=== PATIENT | female | born 1995 | race Caucasian/White ===

== ENCOUNTER 2017-11-29 10:05 | Emergency (ER) | payer OTHER ==
[~2017-11-29] VITALS: Ht 160 cm; Wt 50.8 kg
[~2017-11-29 10:05] MED LIST: CEPH500 PO; PROM25 PO; Verotin-Gr Cap1 EACH
[2017-11-29] MEDS ORDERED: BIRTH CONTROL (10:10)
[2017-11-29] MEDS ORDERED: IBUP600 PO (10:23)
== END 2017-11-29 10:35 | disposition home or self-care (01) ==
LOC: ER 10:05
DX: M25.512 Pain in left shoulder (principal)
CPT/HCPCS: 96372; 99283; J1885

== ENCOUNTER 2017-12-14 11:24 | Emergency (ER) | payer OTHER ==
[~2017-12-14] VITALS: Ht 160 cm; Wt 52.2 kg
[~2017-12-14 11:24] MED LIST changes: +BIRTH CONTROL; +IBUP600 PO
[2017-12-14] MEDS ORDERED: Norethindrone0.35 MG PO (12:47)
[2017-12-14 13:51] LABS: BASOPHILS ABSOLUTE AUTO 0.04 K/mm3 (0.00-0.23); BASOPHILS PERCENT AUTO 1 % (0-2); EOSINOPHILS ABSOLUTE AUTO 0.09 K/mm3 (0.00-0.68); EOSINOPHILS PERCENT AUTO 1 % (0-6); Hematocrit 41.2 % (33.0-51.0); Hemoglobin 14.1 g/dL (11.5-16.0); IMMATURE GRAN ABSOLUTE AUTO 0.01 K/mm3 (0.00-0.10); IMMATURE GRAN PERCENT AUTO 0 % (0-1); LYMPHOCYTES ABSOLUTE AUTO 2.13 K/mm3 (0.84-5.20); LYMPHOCYTES PERCENT AUTO 34 % (21-46); MONOCYTES ABSOLUTE AUTO 0.36 K/mm3 (0.16-1.47); MONOCYTES PERCENT AUTO 6 % (4-13); Mean Corpuscular HGB 32.1 pg (26.0-34.0); Mean Corpuscular HGB Conc 34.2 g/dL (31.5-36.5); Mean Corpuscular Volume 94 fL (80-100); Mean Platelet Volume 10.7 fL (9.1-12.4); NEUTROPHILS PERCENT AUTO 58 % (41-73); Platelet Count 239 K/mm3 (150-400); RDW Coefficient Variation 11.9 % (11.7-14.2); RDW Standard Deviation 41.2 fL (35.1-46.3); Red Blood Cell Count 4.39 M/mm3 (3.80-5.20); White Blood Cell Count 6.23 K/mm3 (4.00-11.30)
[2017-12-14] MEDS ORDERED: MEDR10 PO (16:36)
== END 2017-12-14 17:01 | disposition home or self-care (01) ==
LOC: ER 11:24
PROVIDERS: Physician Assistant
DX: N93.9 Abnormal uterine and vaginal bleeding, unspecified (principal); Z79.899 Other long term (current) drug therapy
CPT/HCPCS: 36415; 84702; 85025; 96374; 99283; J1885

== ENCOUNTER → 2018-09-27 | Outpatient (CLI) | payer OTHER ==
[~2018-09-27] MED LIST changes: +MEDR10 PO; +Norethindrone0.35 MG PO
== END ==
LOC: LAB SHORT 13:09 → LAB 13:09
PROVIDERS: Registered Nurse Community Health
DX: Z12.4 Encounter for screening for malignant neoplasm of cervix (principal)
CPT/HCPCS: G0123

== ENCOUNTER 2019-03-14 07:28 | Emergency (ER) | payer OTHER ==
[~2019-03-14] VITALS: Ht 175.3 cm; Wt 43.5 kg
== END 2019-03-14 09:00 | disposition home or self-care (01) ==
LOC: ER 07:28
DX: L23.7 Allergic contact dermatitis due to plants, except food (principal)
CPT/HCPCS: 96372; 99283-25; J3301

== ENCOUNTER 2020-06-29 07:42 | Emergency (ER) | payer OTHER ==
[~2020-06-29] VITALS: Ht 157.5 cm; Wt 49.9 kg
[2020-06-29 08:40] LABS: BASOPHILS ABSOLUTE AUTO 0.04 K/mm3 (0.00-0.23); BASOPHILS PERCENT AUTO 0 % (0-2); EOSINOPHILS ABSOLUTE AUTO 0.02 K/mm3 (0.00-0.68); EOSINOPHILS PERCENT AUTO 0 % (0-6); Hematocrit 43.8 % (33.0-51.0); IMMATURE GRAN ABSOLUTE AUTO 0.04 K/mm3 (0.00-0.10); IMMATURE GRAN PERCENT AUTO 0 % (0-1); LYMPHOCYTES PERCENT AUTO 9 % (21-46); MONOCYTES ABSOLUTE AUTO 0.35 K/mm3 (0.16-1.47); MONOCYTES PERCENT AUTO 3 % (4-13); Mean Corpuscular HGB Conc 34.2 g/dL (31.5-36.5); Mean Corpuscular Volume 91 fL (80-100); Mean Platelet Volume 10.5 fL (9.1-12.4); NEUTROPHILS ABSOLUTE AUTO 10.82 K/mm3 (1.96-9.15); NEUTROPHILS PERCENT AUTO 88 % (41-73); Platelet Count 223 K/mm3 (150-400); RDW Coefficient Variation 12.2 % (11.7-14.2); RDW Standard Deviation 40.4 fL (35.1-46.3); Red Blood Cell Count 4.84 M/mm3 (3.80-5.20); White Blood Cell Count 12.37 K/mm3 (4.00-11.30)
[2020-06-29 08:57] LABS: Alanine Aminotransfer (ALT/SGP 20 U/L (12-78); Albumin, Blood 4.4 g/dL (3.4-5.0); Alk Phos 59 U/L (50-136); Anion Gap 11 mmol/L (6-16); Aspartate Aminotrans (AST/SGOT 18 U/L (12-37); Bilirubin, Total 1.7 mg/dL (0.1-1.0); Blood Urea Nitrogen 6 mg/dL (8-24); Bun/Creatinine Ratio 12.6 (12.0-20.0); CO2, Blood 21 mmol/L (21-32); Calcium, Blood 9.9 mg/dL (8.5-10.1); Chloride, Blood 107 mmol/L (98-108); Creatinine, Blood 0.48 mg/dL (0.40-1.00); Globulin, Blood 4.3 g/dL (2.2-4.0); Glomerular Filtration Rate >60 (60-); Glucose, Blood 100 mg/dL (70-99); Potassium, Blood 3.4 mmol/L (3.5-5.5); Sodium, Blood 139 mmol/L (136-145); Total Protein, Blood 8.7 g/dL (6.4-8.2)
[2020-06-29] MEDS ORDERED: PHENERGAN25 MG PR (09:31)
[2020-06-29] MEDS ORDERED: Zofran4 MG PO (09:31)
[2020-06-29] MEDS ORDERED: PRENATAL TABLE1 EAC2 PO (09:50)
== END 2020-06-29 10:25 | disposition home or self-care (01) ==
LOC: ER 07:42
PROVIDERS: Emergency Medicine
DX: O21.0 Mild hyperemesis gravidarum (principal); Z3A.10 10 weeks gestation of pregnancy
CPT/HCPCS: 80053; 85025; 96361; 96374; 96375; 99283-25; J2405; J2550; J7030

== ENCOUNTER → 2020-07-22 | Outpatient (CLI) | payer OTHER ==
[~2020-07-22] MED LIST changes: +PHENERGAN25 MG PR; +PRENATAL TABLE1 EAC2 PO; +Zofran4 MG PO
[2020-07-22 15:42] LABS: Bilirubin, Urine Neg (Neg); Blood, Urine Neg (Neg); Glucose Qualitative, Urine Neg (Neg); Ketones, Urine Neg (Neg); Leukocyte Esterase, Urine Neg (Neg); Nitrite, Urine Neg (Neg); Protein, Urine Neg (Neg); Urobilinogen, Urine NORM (Normal)
[2020-07-22 15:55] LABS: Appearance, Urine Clear (Clear); Color, Urine Yellow (P-Yellow)
[2020-07-23 06:23] LABS: Candida species (DNA Probe) Negative (NEGATIVE); G. vaginalis (DNA Probe) Positive (NEGATIVE); T. vaginalis (DNA Probe) Negative (NEGATIVE)
[2020-08-02 13:11] LABS: CHLAMYDIA TRACHOMATIS, NAA Negative (Negative); NEISSERIA GONORRHOEAE, NAA Negative (Negative)
== END | disposition home or self-care (01) ==
LOC: LAB SHORT 14:48 → LAB 14:48
PROVIDERS: Advanced Practice Midwife
DX: O23.591 Infection of other part of genital tract in pregnancy, first trimester (principal); Z11.3 Encounter for screening for infections with a predominantly sexual mode of transmission
CPT/HCPCS: 81003; 87480; 87491; 87510; 87591; 87625; 87660; G0123

== ENCOUNTER → 2021-01-02 | Outpatient (CLI) | payer OTHER | END | disposition home or self-care (01) | LOC: LAB SHORT 14:02 | DX: O09.92 Supervision of high risk pregnancy, unspecified, second trimester (principal) | CPT/HCPCS: 87081; 87150 ==

== ENCOUNTER 2021-01-21 02:04 | Inpatient (IN) | payer OTHER ==
[~2021-01-21] VITALS: Ht 157.5 cm; Wt 60.0 kg
[2021-01-21 02:58] LABS: BASOPHILS ABSOLUTE AUTO 0.03 K/mm3 (0.00-0.23); BASOPHILS PERCENT AUTO 0 % (0-2); EOSINOPHILS ABSOLUTE AUTO 0.03 K/mm3 (0.00-0.68); EOSINOPHILS PERCENT AUTO 0 % (0-6); Hematocrit 36.2 % (33.0-51.0); Hemoglobin 12.2 g/dL (11.5-16.0); IMMATURE GRAN PERCENT AUTO 1 % (0-1); LYMPHOCYTES ABSOLUTE AUTO 1.56 K/mm3 (0.84-5.20); LYMPHOCYTES PERCENT AUTO 13 % (21-46); MONOCYTES ABSOLUTE AUTO 0.71 K/mm3 (0.16-1.47); MONOCYTES PERCENT AUTO 6 % (4-13); Mean Corpuscular HGB 30.1 pg (26.0-34.0); Mean Corpuscular HGB Conc 33.7 g/dL (31.5-36.5); Mean Corpuscular Volume 89 fL (80-100); Mean Platelet Volume 10.8 fL (9.1-12.4); NEUTROPHILS ABSOLUTE AUTO 9.67 K/mm3 (1.96-9.15); NEUTROPHILS PERCENT AUTO 80 % (41-73); Platelet Count 185 K/mm3 (150-400); RDW Coefficient Variation 14.1 % (11.7-14.2); RDW Standard Deviation 45.3 fL (35.1-46.3); Red Blood Cell Count 4.05 M/mm3 (3.80-5.20)
[2021-01-21 03:35] LABS: SARS-Cov-2 (COVID-19) PCR, MMC NEGATIVE (NEGATIVE)
[2021-01-21] MEDS ORDERED: DOCU100 PO (08:53)
[2021-01-21] MEDS ORDERED: IBUP800 PO (08:54)
== END 2021-01-22 10:05 | disposition home or self-care (01) | DRG 807 ==
LOC: BC 02:04 → OBS 02:04 → BC 02:29
PROVIDERS: ADMIT Advanced Practice Midwife
PROC: 10E0XZZ Delivery of Products of Conception, External Approach (ICD-10-PCS; principal; 2021-01-21)
PROC: 10907ZC Drainage of Amniotic Fluid, Therapeutic from Products of Conception, Via Natural or Artificial Opening (ICD-10-PCS; 2021-01-21)
DX: O99.324 Drug use complicating childbirth (principal); Z37.0 Single live birth; F12.90 Cannabis use, unspecified, uncomplicated; Z3A.39 39 weeks gestation of pregnancy
CPT/HCPCS: 85025; 86850; 86900; 86901; A9270; J1885; J2210; J2405; J2590; J3010; J7120; U0004

== ENCOUNTER 2021-04-29 21:23 | Emergency (ER) | payer OTHER ==
[~2021-04-29] VITALS: Ht 157.5 cm; Wt 52.2 kg
[~2021-04-29 21:23] MED LIST changes: +DOCU100 PO; +IBUP800 PO
[2021-04-30] MEDS ORDERED: Mupirocin22 GM TOP (00:25)
== END 2021-04-30 00:52 | disposition home or self-care (01) ==
LOC: ER 21:23
DX: L03.114 Cellulitis of left upper limb (principal); F41.9 Anxiety disorder, unspecified; F32.9 Major depressive disorder, single episode, unspecified
CPT/HCPCS: 99283

== ENCOUNTER → 2022-09-28 | Outpatient (CLI) | payer OTHER ==
[~2022-09-28] MED LIST changes: +Mupirocin22 GM TOP
[2022-09-28 15:00] LABS: Source, Urine Clean Catch
[2022-09-28 16:46] LABS: Red Blood Cells, Urine 0-2 /hpf (0-2)
[2022-09-28 16:47] LABS: Bacteria Few /hpf; Squamous Epithelial Cells Few /hpf (Few)
[2022-09-28 16:51] LABS: U Cannabinoids Screen DETECTED
[2022-09-28 16:52] LABS: U Amphetamine Screen Not Detected; U Barbituate Screen Not Detected; U Benzodiazapine Screen Not Detected; U Cocaine Screen Not Detected; U Methadone Screen Not Detected; U Methamphetamine Screen Not Detected; U Opiates Screen Not Detected; U Phencyclidine Screen Not Detected
[2022-09-28 16:53] LABS: U Buprenorphine Screen Not Detected; U Oxycodone Screen Not Detected; U Propoxyphene Screen Not Detected
== END | disposition home or self-care (01) ==
LOC: LAB SHORT 14:56
PROVIDERS: Advanced Practice Midwife
DX: Z34.01 Encounter for supervision of normal first pregnancy, first trimester (principal)
CPT/HCPCS: 81015

== ENCOUNTER → 2022-10-28 | Outpatient (CLI) | payer OTHER ==
[2022-10-28 14:51] LABS: Candida species (DNA Probe) Negative (NEGATIVE); G. vaginalis (DNA Probe) Negative (NEGATIVE); T. vaginalis (DNA Probe) Negative (NEGATIVE)
== END | disposition home or self-care (01) ==
LOC: LAB 11:15 → LAB SHORT 11:15
PROVIDERS: Advanced Practice Midwife
DX: N76.0 Acute vaginitis (principal)
CPT/HCPCS: 87480; 87510; 87660

== ENCOUNTER 2022-11-18 20:02 | Inpatient (IN) | payer OTHER ==
[~2022-11-18] VITALS: Ht 157.5 cm; Wt 60.0 kg
[2022-11-18 21:20] LABS: BASOPHILS ABSOLUTE AUTO 0.03 K/mm3 (0.00-0.23); BASOPHILS PERCENT AUTO 0 % (0-2); EOSINOPHILS ABSOLUTE AUTO 0.07 K/mm3 (0.00-0.68); EOSINOPHILS PERCENT AUTO 1 % (0-6); Hematocrit 35.4 % (33.0-51.0); Hemoglobin 11.7 g/dL (11.5-16.0); IMMATURE GRAN PERCENT AUTO 1 % (0-1); LYMPHOCYTES PERCENT AUTO 16 % (21-46); MONOCYTES ABSOLUTE AUTO 0.69 K/mm3 (0.16-1.47); MONOCYTES PERCENT AUTO 7 % (4-13); Mean Corpuscular HGB 27.9 pg (26.0-34.0); Mean Corpuscular HGB Conc 33.1 g/dL (31.5-36.5); Mean Corpuscular Volume 84 fL (80-100); Mean Platelet Volume 10.9 fL (9.1-12.4); NEUTROPHILS ABSOLUTE AUTO 7.86 K/mm3 (1.96-9.15); NEUTROPHILS PERCENT AUTO 75 % (41-73); Platelet Count 240 K/mm3 (150-400); RDW Coefficient Variation 13.8 % (11.7-14.2); RDW Standard Deviation 41.9 fL (35.1-46.3); White Blood Cell Count 10.45 K/mm3 (4.00-11.30)
--- NOTE | 2022-11-19 05:53 | NUR ---
patient appears to be sleeping
== END 2022-11-20 13:55 | disposition home or self-care (01) | DRG 805 ==
LOC: BC 20:02 → OBS 20:02 → BC 20:04 → OBS 20:08 → BC 20:09
PROVIDERS: ADMIT Advanced Practice Midwife
PROC: 10E0XZZ Delivery of Products of Conception, External Approach (ICD-10-PCS; principal; 2022-11-19)
DX: O42.013 Preterm premature rupture of membranes, onset of labor within 24 hours of rupture, third trimester (principal); O75.3 Other infection during labor; Z37.0 Single live birth; O99.324 Drug use complicating childbirth; F12.10 Cannabis abuse, uncomplicated; Z3A.36 36 weeks gestation of pregnancy; Z86.16 Personal history of COVID-19; Z79.899 Other long term (current) drug therapy
CPT/HCPCS: 36415; 85025; 86850; 86900; 86901; 90471; 90707; A9270; J2405; J2590; J3010; J7120

== ENCOUNTER → 2022-12-28 | Outpatient (CLI) | payer OTHER | END | disposition home or self-care (01) | LOC: LAB SHORT 16:51 → LAB 16:51 | PROVIDERS: Advanced Practice Midwife | DX: Z01.419 Encounter for gynecological examination (general) (routine) without abnormal findings (principal) | CPT/HCPCS: G0145 ==

== ENCOUNTER 2023-07-06 05:33 | Emergency (ER) | payer OTHER ==
[~2023-07-06] VITALS: Ht 157.5 cm; Wt 54.4 kg
[2023-07-06 06:20] LABS: BASOPHILS ABSOLUTE AUTO 0.02 K/mm3 (0.00-0.23); BASOPHILS PERCENT AUTO 0 % (0-2); EOSINOPHILS ABSOLUTE AUTO 0.02 K/mm3 (0.00-0.68); EOSINOPHILS PERCENT AUTO 0 % (0-6); Hematocrit 39.4 % (33.0-51.0); Hemoglobin 13.9 g/dL (11.5-16.0); IMMATURE GRAN ABSOLUTE AUTO 0.04 K/mm3 (0.00-0.10); IMMATURE GRAN PERCENT AUTO 0 % (0-1); LYMPHOCYTES ABSOLUTE AUTO 0.62 K/mm3 (0.84-5.20); LYMPHOCYTES PERCENT AUTO 5 % (21-46); MONOCYTES ABSOLUTE AUTO 0.36 K/mm3 (0.16-1.47); MONOCYTES PERCENT AUTO 3 % (4-13); Mean Corpuscular HGB 30.7 pg (26.0-34.0); Mean Corpuscular HGB Conc 35.3 g/dL (31.5-36.5); Mean Corpuscular Volume 87 fL (80-100); Mean Platelet Volume 10.5 fL (9.1-12.4); NEUTROPHILS ABSOLUTE AUTO 10.51 K/mm3 (1.96-9.15); NEUTROPHILS PERCENT AUTO 91 % (41-73); Platelet Count 199 K/mm3 (150-400); RDW Coefficient Variation 12.4 % (11.7-14.2); RDW Standard Deviation 39.6 fL (35.1-46.3); Red Blood Cell Count 4.53 M/mm3 (3.80-5.20); White Blood Cell Count 11.57 K/mm3 (4.00-11.30)
[2023-07-06 06:37] LABS: Albumin, Blood 3.6 g/dL (3.4-5.0); Albumin/Globulin Ratio 0.9 (0.8-1.8); Bilirubin, Total 1.4 mg/dL (0.1-1.0); Bun/Creatinine Ratio 7.9 (12.0-20.0); Calcium, Blood 8.7 mg/dL (8.5-10.1); Creatinine, Blood 0.63 mg/dL (0.40-1.00); Globulin, Blood 4.2 g/dL (2.2-4.0); Potassium, Blood 3.7 mmol/L (3.5-5.5); Total Protein, Blood 7.8 g/dL (6.4-8.2)
[2023-07-06 07:30] VITALS: BP 123/85
== END 2023-07-06 07:31 | disposition home or self-care (01) ==
LOC: ER 05:33
PROVIDERS: Emergency Medicine
DX: O99.611 Diseases of the digestive system complicating pregnancy, first trimester (principal); K52.9 Noninfective gastroenteritis and colitis, unspecified; Z3A.12 12 weeks gestation of pregnancy
CPT/HCPCS: 80053; 85025; 96361; 96374; 99283-25; J2405; J7030

== ENCOUNTER → 2023-07-15 | Outpatient (CLI) | payer OTHER ==
[2023-07-15 13:18] LABS: Source, Urine Voided
[2023-07-15 14:39] LABS: Appearance, Urine Hazy (Clear); Bilirubin, Urine Neg (Neg); Blood, Urine Neg (Neg); Color, Urine Yellow (P-Yellow); Glucose Qualitative, Urine Neg (Neg); Ketones, Urine Neg (Neg); Leukocyte Esterase, Urine 1+ (Neg); Nitrite, Urine Neg (Neg); Protein, Urine 1+ (Neg); Specific Gravity, Urine 1.015 (1.003-1.022); Urobilinogen, Urine NORM (Normal)
[2023-07-15 15:02] LABS: Amorphous Light (0-Heavy); Mucus Light (0-Heavy); Squamous Epithelial Cells Few /hpf (Few)
[2023-07-15 15:03] LABS: Bacteria Many /hpf; Red Blood Cells, Urine 0-2 /hpf (0-2); Transitional Epithelial Cells Rare /hpf (0-Rare)
[2023-07-15 17:14] LABS: BASOPHILS ABSOLUTE AUTO 0.04 K/mm3 (0.00-0.23); BASOPHILS PERCENT AUTO 1 % (0-2); EOSINOPHILS ABSOLUTE AUTO 0.07 K/mm3 (0.00-0.68); EOSINOPHILS PERCENT AUTO 1 % (0-6); Hematocrit 35.5 % (33.0-51.0); Hemoglobin 12.7 g/dL (11.5-16.0); IMMATURE GRAN ABSOLUTE AUTO 0.02 K/mm3 (0.00-0.10); IMMATURE GRAN PERCENT AUTO 0 % (0-1); LYMPHOCYTES ABSOLUTE AUTO 1.66 K/mm3 (0.84-5.20); LYMPHOCYTES PERCENT AUTO 19 % (21-46); MONOCYTES ABSOLUTE AUTO 0.49 K/mm3 (0.16-1.47); MONOCYTES PERCENT AUTO 6 % (4-13); Mean Corpuscular HGB 31.1 pg (26.0-34.0); Mean Corpuscular HGB Conc 35.8 g/dL (31.5-36.5); Mean Corpuscular Volume 87 fL (80-100); Mean Platelet Volume 11.1 fL (9.1-12.4); NEUTROPHILS ABSOLUTE AUTO 6.53 K/mm3 (1.96-9.15); NEUTROPHILS PERCENT AUTO 74 % (41-73); Platelet Count 233 K/mm3 (150-400); RDW Coefficient Variation 12.5 % (11.7-14.2); RDW Standard Deviation 39.6 fL (35.1-46.3); Red Blood Cell Count 4.08 M/mm3 (3.80-5.20); White Blood Cell Count 8.81 K/mm3 (4.00-11.30)
[2023-07-16 10:10] LABS: HBSAG SCREEN Negative (Negative); HCV ANTIBODY Non Reactive (Non Reactive)
[2023-07-16 11:41] LABS: Candida species (DNA Probe) Negative (NEGATIVE); G. vaginalis (DNA Probe) Positive (NEGATIVE); T. vaginalis (DNA Probe) Negative (NEGATIVE)
[2023-07-17 00:08] LABS: HIV AB/P24 AG SCREEN Non Reactive (Non Reactive)
[2023-07-17 05:12] LABS: CHLAMYDIA TRACHOMATIS, NAA Negative (Negative)
== END ==
LOC: LAB 11:08 → LAB SHORT 11:08
PROVIDERS: Advanced Practice Midwife
DX: Z11.3 Encounter for screening for infections with a predominantly sexual mode of transmission (principal); O23.41 Unspecified infection of urinary tract in pregnancy, first trimester; O23.599 Infection of other part of genital tract in pregnancy, unspecified trimester
CPT/HCPCS: 81001; 84443; 85025; 86592; 86762; 86803; 86850; 86900; 86901; 87086; 87340; 87389; 87480; 87491; 87510; 87591; 87660

== ENCOUNTER → 2023-08-12 | Outpatient (CLI) | payer OTHER ==
[2023-08-19 04:29] LABS: FAMILY HX NEURAL TUBE DEFECT No; INSULIN REQ MATERNAL DIABETES No; MATERNAL AGE AT DELIVERY 26.8 yr; MATERNAL SCREEN INTERPRETATION Screen Neg; MATERNAL WEIGHT 132.0 lbs.; NUMBER OF FETUSES Singleton; PATIENT'S AFP 63 ng/mL; SMOKING No
== END | disposition home or self-care (01) ==
LOC: LAB 09:30 → LAB SHORT 09:30
PROVIDERS: Advanced Practice Midwife
DX: O09.893 Supervision of other high risk pregnancies, third trimester (principal)
CPT/HCPCS: 82105

== ENCOUNTER → 2023-09-02 | Outpatient (CLI) | payer OTHER ==
[2023-09-02 17:57] LABS: Source, Urine Voided
[2023-09-02 19:43] LABS: Appearance, Urine Clear (Clear); Bilirubin, Urine Neg (Neg); Blood, Urine Neg (Neg); Glucose Qualitative, Urine Neg (Neg); Ketones, Urine Neg (Neg); Leukocyte Esterase, Urine Neg (Neg); Nitrite, Urine Neg (Neg); Protein, Urine Neg (Neg); Specific Gravity, Urine 1.005 (1.003-1.022); Urobilinogen, Urine NORM (Normal)
[2023-09-02 19:49] LABS: Color, Urine Pale Yellow (P-Yellow)
[2023-09-03 11:47] LABS: Candida species (DNA Probe) Negative (NEGATIVE); G. vaginalis (DNA Probe) Positive (NEGATIVE); T. vaginalis (DNA Probe) Negative (NEGATIVE)
== END ==
LOC: LAB SHORT 17:54 → LAB 17:54
PROVIDERS: Advanced Practice Midwife
DX: O23.41 Unspecified infection of urinary tract in pregnancy, first trimester (principal)
CPT/HCPCS: 81003; 87480; 87510; 87660

== ENCOUNTER → 2023-10-04 | Outpatient (CLI) | payer OTHER ==
[2023-10-05 12:27] LABS: Candida species (DNA Probe) Positive (NEGATIVE); G. vaginalis (DNA Probe) Positive (NEGATIVE); T. vaginalis (DNA Probe) Negative (NEGATIVE)
== END | disposition home or self-care (01) ==
LOC: LAB SHORT 11:35 → LAB 11:35
PROVIDERS: Advanced Practice Midwife
DX: O23.599 Infection of other part of genital tract in pregnancy, unspecified trimester (principal)
CPT/HCPCS: 87480; 87510; 87660

== ENCOUNTER → 2023-12-17 | Outpatient (CLI) | payer OTHER | LOC: LAB SHORT 13:09 → LAB 13:09 | DX: O09.893 Supervision of other high risk pregnancies, third trimester (principal) | CPT/HCPCS: 87081; 87150 ==

== ENCOUNTER 2024-01-10 14:15 | Inpatient (IN) | payer OTHER ==
[2024-01-10] VITALS (10 sets, daily range): BP systolic 107–130; BP diastolic 58–68
[~2024-01-10] VITALS: Ht 157.5 cm; Wt 63.2 kg
[2024-01-10] MEDS ORDERED: Castor Oil 59.146 ML BTL TOP SCH (14:30)
[2024-01-10] MEDS ORDERED: LR Oxytocin 20 Units 1,000 ML IV SCH ×2 (14:30→15:15)
[2024-01-10] MEDS ORDERED: Lidocaine HCl 1% 30 ML SDV XX SCH (14:30)
[2024-01-10] MEDS ORDERED: Bupivacaine HCl 2.5 MG/ML 10ML P/F Injection XX SCH (14:30)
[2024-01-10] MEDS ORDERED: Oxytocin 10 Unit / ML Vial IM SCH (14:30)
[2024-01-10] MEDS ORDERED: Bupivacaine 0.5% HCl 5 MG/ML 30MLVIAL XX SCH (14:30)
[2024-01-10] MEDS ORDERED: Methylergonovine Maleate 0.2MG / ML 1ML Amp IM SCH (14:30)
[2024-01-10] MEDS ORDERED: Lactated Ringer's 1,000 ML IV PRN (14:30)
[2024-01-10] MEDS ORDERED: Misoprostol 200 MCG Tab PR SCH (14:30)
[2024-01-10] MEDS ORDERED: LR Oxytocin 20 Units 1,000 ML IV ONE (14:40)
[2024-01-10] MEDS ORDERED: Methylergonovine Maleate 0.2MG / ML 1ML Amp ONE (14:40)
[2024-01-10 14:41] LABS: BASOPHILS ABSOLUTE AUTO 0.04 K/mm3 (0.00-0.23); BASOPHILS PERCENT AUTO 0 % (0-2); EOSINOPHILS ABSOLUTE AUTO 0.03 K/mm3 (0.00-0.68); EOSINOPHILS PERCENT AUTO 0 % (0-6); Hematocrit 36.1 % (33.0-51.0); Hemoglobin 12.4 g/dL (11.5-16.0); IMMATURE GRAN ABSOLUTE AUTO 0.14 K/mm3 (0.00-0.10); IMMATURE GRAN PERCENT AUTO 1 % (0-1); LYMPHOCYTES ABSOLUTE AUTO 2.25 K/mm3 (0.84-5.20); LYMPHOCYTES PERCENT AUTO 14 % (21-46); MONOCYTES PERCENT AUTO 4 % (4-13); Mean Corpuscular HGB 29.5 pg (26.0-34.0); Mean Corpuscular HGB Conc 34.3 g/dL (31.5-36.5); Mean Corpuscular Volume 86 fL (80-100); Mean Platelet Volume 10.3 fL (9.1-12.4); NEUTROPHILS ABSOLUTE AUTO 12.83 K/mm3 (1.96-9.15); NEUTROPHILS PERCENT AUTO 81 % (41-73); Platelet Count 274 K/mm3 (150-400); RDW Coefficient Variation 13.5 % (11.7-14.2); RDW Standard Deviation 41.7 fL (35.1-46.3); White Blood Cell Count 15.89 K/mm3 (4.00-11.30)
[2024-01-10] MEDS ORDERED: Docusate Sodium 100 MG Cap PO PRN (15:10)
[2024-01-10] MEDS ORDERED: Witch Hazel/Glycerin PADS TOP PRN (15:10)
[2024-01-10] MEDS ORDERED: Benzocaine Topical Anesthetic Spray 60GM TOP PRN (15:10)
[2024-01-10] MEDS ORDERED: Acetaminophen 325 MG TABLET PO PRN (15:10)
[2024-01-10] MEDS ORDERED: Ibuprofen 400 MG Tab PO PRN (15:10)
[2024-01-10] MEDS ORDERED: Methylergonovine Maleate 0.2MG / ML 1ML Amp IM PRN (15:15)
[2024-01-10] MEDS ORDERED: Misoprostol 200 MCG Tab PR PRN (15:15)
[2024-01-10] MEDS ORDERED: Lactated Ringer's 1,000 ML IV SCH (15:15)
[2024-01-10] MEDS ORDERED: Ondansetron HCl 2 MG / ML 2ML Vial ONE (15:37)
[2024-01-10] MEDS ORDERED: Ketorolac Tromethamine 30mg Vial IV ONE (16:00)
[2024-01-10] MEDS ORDERED: Ketorolac Tromethamine 30mg Vial IV PRN (16:00)
[2024-01-10] MEDS ORDERED: Metoclopramide HCl 10 MG Tab PO PRN (17:45)
[2024-01-10] MEDS ORDERED: Ondansetron HCl 2 MG / ML 2ML Vial IV ONE (19:20)
[2024-01-10] MEDS ORDERED: Ondansetron HCl 2 MG / ML 2ML Vial IV PRN (20:40)
[2024-01-11 03:22] VITALS: BP 107/68
--- NOTE | 2024-01-11 04:22 | NUR ---
pt had 3 emesis tonight. iv zofran and po reglan given with a little relief, see mar. pt states hot shower is what helps the most. pt is well with out difficulty. denies pain. vitals stable.
[2024-01-11 07:48] VITALS: BP 101/54
[2024-01-11] MEDS ORDERED: Prenatal Vit/FE Fumarate/FA 1 Tab PO SCH (09:00)
[2024-01-11 11:27] VITALS: BP 123/60
[2024-01-11 15:23] VITALS: BP 106/52
--- NOTE | 2024-01-11 15:23 | NUR ---
DISCHARGE INSTRUCTIONS REVIEWED AND SIGNED. QUESTIONS ANSWERED. BANDS MATCHED.
== END 2024-01-11 15:45 | disposition home or self-care (01) | DRG 805 ==
LOC: BC 14:15 → OBS 14:15 → BC 14:24
PROVIDERS: ADMIT Advanced Practice Midwife
PROC: 10E0XZZ Delivery of Products of Conception, External Approach (ICD-10-PCS; principal; 2024-01-10)
DX: O99.324 Drug use complicating childbirth (principal); O75.3 Other infection during labor; Z37.0 Single live birth; Z3A.38 38 weeks gestation of pregnancy; F12.90 Cannabis use, unspecified, uncomplicated; Z79.899 Other long term (current) drug therapy
CPT/HCPCS: 85025; 86850; 86900; 86901; A9270; J1885; J2405; J2590